=== PATIENT | male | born 1940 | race Caucasian/White ===

== ENCOUNTER 2024-12-25 03:51 | Inpatient (IN) | payer MEDICARE, OTHER, SELFPAY ==
[2024-12-24 21:05] VITALS: BP 191/91
[2024-12-24 21:31] LABS: Hematocrit 45.8 % (39.0-52.0); Hemoglobin 15.7 g/dL (13.0-18.0); Mean Corp Hgb Conc. 34.3 g/dL (33.0-37.0); Mean Corpuscular Volume 92.2 fL (80.0-94.0); Nucleated Red Blood Cells % 0 % (-); Platelet Count 219 10^3/uL (130-400); Red Cell Dist. Width 14.0 % (11.5-14.5)
[2024-12-24 21:44] LABS: ALT (SGPT) 24 U/L (0-50); AST (SGOT) 25 U/L (17-59); Albumin 4.2 g/dl (3.5-5.0); Alkaline Phosphatase 70 U/L (38-126); Blood Urea Nitrogen 17 mg/dl (9-20); Calcium 9.4 mg/dl (8.4-10.2); Carbon Dioxide 23 mmol/L (22-30); Chloride 113 mmol/L (98-107); Glucose 122 mg/dl (70-99); Potassium 4.9 mmol/L (3.5-5.1); Sodium 142 mmol/L (135-145); Total Protein 7.1 g/dl (6.3-8.2); eGFR 48.95
[2024-12-24 23:54] VITALS: BP 174/85
[2024-12-25] VITALS (16 sets, daily range): BP systolic 145–184; BP diastolic 72–103; PULSE 50–57; O2SAT 97; BMI 34.2; BMI 35.4
--- NOTE | 2024-12-25 00:16 | ED.GENMED ---
ED Provider Triage
<Bal Kulkarni MD, Resident - Last Filed: 12/25/24 02:14>
-
Patient seen by provider in Triage?: Seen in Triage
History of Present Illness
<Bal Kulkarni MD, Resident - Last Filed: 12/25/24 02:14>
General
Chief Complaint: Weakness
Source: patient
Exam Limitations: none
Time Seen by Provider: 12/24/24 23:59
History of Present Illness
History of Present Illness:
84-year-old male with present at bedside presents today because at around 8:00 PM he was getting up from his couch and all of a sudden felt weakness of his right leg and was unable to move the leg for a few minutes. Not associated with any
numbness or tingling. No slurring of speech, facial droop, visual changes, confusion. No recent falls, head trauma. No previous PA or stroke. Medical history is significant for hypothyroidism and benign prostatic hyperplasia.
Past History
<Bal Kulkarni MD, Resident - Last Filed: 12/25/24 02:14>
Past History
ED Past Medical History: HTN, Other (Kidney stones) and Other (Hypothyroidism, neck pain)
ED Past Surgical History: None
Social History
Tobacco: Non-smoker
Alcohol: None
Personal:
Living: with family
Employment: Retired
Family History
Family History: Negative CAD
Review of Systems
<Bal Kulkarni MD, Resident - Last Filed: 12/25/24 02:14>
Review of Systems
Allergies reviewed?: Yes
All Other Systems: ROS reviewed and negative except as documented in HPI and ROS
Respiratory: Reports no symptoms
Cardiac: Reports no symptoms
ABD/GI: Reports no symptoms
Musculoskeletal: Reports no symptoms
Psychiatric: Reports no symptoms
Phy Exam
<Bal Kulkarni MD, Resident - Last Filed: 12/25/24 02:14>
General Physical Exam
General Presentation: well appearing and no apparent distress
General Skin: warm and dry
General Habitus: normal
General Mental: alert
Cardiovascular Exam
Cardiovascular Exam: regular rate/rhythm and no edema
Pulmonary Exam
Pulmonary Exam: lungs clear and no respiratory distress
Gastrointestinal Exam
Gastrointestinal Exam: normal bowel sounds, non tender, soft and non distended
Neurological Exam
Neurological Exam: alert, oriented x3, CN II-XII intact, no motor deficits, normal reflexs, no sensory deficits and speech normal
Musculoskeletal Exam
Musculoskeletal Exam: full ROM
Scores
<Bal Kulkarni MD, Resident - Last Filed: 12/25/24 02:14>
NIH Stroke Score
NIH Total Score:: 3
<Khloe Soto, DO - Last Filed: 12/25/24 02:35>
NIH Stroke Score
Level of Consciousness: 0 - Alert
LOC Questions: 2-Neither correct
LOC Commands: 0-Performs both correctly
Best Horizontal Gaze: 0-Normal
Visual Lopez: 0=Normal, no visual loss
Facial Palsy: 0=Normal, symmetrical
Motor - Right Arm: 0=No drift 10 seconds
Motor - Left Arm: 0=No drift 10 seconds
Motor - Right Le-No drift 5 seconds
Motor - Left Le-No drift 5 seconds
Limb Ataxia: 0-Absent
Sensation: 0-Normal
Best Language: 1-Mild aphasia
Dysarthria: 0-Normal
Extinction and Inattention: 0-No abnormality
NIH Total Score:: 3
Course
<Bal Kulkarni MD, Resident - Last Filed: 12/25/24 02:14>
Orders/Labs/Results
Orders:
Orders
12/24/24 21:10
EKG [Electrocardiogram (*1)] Urgent
Reason for Study: Fatigue / Weakness
EKG- Treatment ONCE
12/24/24 21:23
Complete Blood Count/With Diff Urgent
Comprehensive Metabolic Panel Urgent
12/25/24 01:08
CT BRAIN PERF STROKE ALERT Urgent
Comment:
Reason For Exam: R-leg weakness, confusion
CT HEAD STROKE ALERT W/o Cont Urgent
Comment:
Reason For Exam: R-leg weakness, confusion
CT HEAD/NECK ANG STROKE ALERT Urgent
Comment:
Reason For Exam: R-leg weakness, confusion
PTT Urgent
Prothrombin Time Urgent
Troponin I Urgent
12/25/24 01:09
Electrocardiogram (*1) Stat
Reason for Study: Other
Other Reason for Exam: neuro symptoms
12/25/24 01:10
Urinalysis Reflex To Culture Urgent
Date Specimen was Collected: 12/25/24
Time Specimen was Collected: 02:06
Abnormal Lab Results
12/24/24
21:23
MCH 31.6 H pg
(27.0-31.0)
MPV 10.7 H fL
(7.4-10.4)
Absolute Monos (auto) 0.7 H 10^3/uL
(0.1-0.6)
Chloride 113 H mmol/L
(98-107)
Creatinine 1.4 H mg/dL
(0.7-1.3)
Glucose 122 H mg/dl
(70-99)
12/24/24 21:23
12/24/24 21:23
Vital Signs
Initial and Last Documented VS:
Initial Vital Signs
Temp Pulse Resp BP Pulse Ox
98.3 F 56 16 191/91 97
12/24/24 21:05 12/24/24 21:05 12/24/24 21:05 12/24/24 21:05 12/24/24 21:05
Last Documented Vital Signs
Temp Pulse Resp BP Pulse Ox
98.3 F 48 22 166/72 96
12/24/24 21:05 12/25/24 01:01 12/25/24 01:01 12/25/24 01:42 12/25/24 00:19
<Khloe Soto, DO - Last Filed: 12/25/24 02:35>
Orders/Labs/Results
Orders:
Orders
12/24/24 21:10
EKG [Electrocardiogram (*1)] Urgent
Reason for Study: Fatigue / Weakness
EKG- Treatment ONCE
12/24/24 21:23
Complete Blood Count/With Diff Urgent
Comprehensive Metabolic Panel Urgent
12/25/24 01:08
CT BRAIN PERF STROKE ALERT Urgent
Comment:
Reason For Exam: R-leg weakness, confusion
CT HEAD STROKE ALERT W/o Cont Urgent
Comment:
Reason For Exam: R-leg weakness, confusion
CT HEAD/NECK ANG STROKE ALERT Urgent
Comment:
Reason For Exam: R-leg weakness, confusion
PTT Urgent
Prothrombin Time Urgent
Troponin I Urgent
12/25/24 01:09
Electrocardiogram (*1) Stat
Reason for Study: Other
Other Reason for Exam: neuro symptoms
12/25/24 01:10
Urinalysis Reflex To Culture Urgent
Date Specimen was Collected: 12/25/24
Time Specimen was Collected: 02:06
Abnormal Lab Results
12/24/24
21:23
MCH 31.6 H pg
(27.0-31.0)
MPV 10.7 H fL
(7.4-10.4)
Absolute Monos (auto) 0.7 H 10^3/uL
(0.1-0.6)
Chloride 113 H mmol/L
(98-107)
Creatinine 1.4 H mg/dL
(0.7-1.3)
Glucose 122 H mg/dl
(70-99)
12/24/24 21:23
12/24/24 21:23
Vital Signs
Initial and Last Documented VS:
Initial Vital Signs
Temp Pulse Resp BP Pulse Ox
98.3 F 56 16 191/91 97
12/24/24 21:05 12/24/24 21:05 12/24/24 21:05 12/24/24 21:05 12/24/24 21:05
Last Documented Vital Signs
Temp Pulse Resp BP Pulse Ox
98.3 F 48 22 166/72 96
12/24/24 21:05 12/25/24 01:01 12/25/24 01:01 12/25/24 01:42 12/25/24 00:19
<Bal Kulkarni MD, Resident - Last Filed: 12/25/24 02:14>
MDM/Problems Addressed
MDM/Problems Addressed:
- CBC is unremarkable
- CMP shows a cr of 1.4
- UA pending
- Stroke alert called. Will get CT brain and angio.
<Bal Kulkarni MD, Resident - Last Filed: 12/25/24 02:14>
*Pulse Oximetry
SaO2: 96
Oxygen Mode of Delivery: Room air
Patient hypoxic: no
*Critical Care Note
Total Time (30-74mins, 75-104mins- exclusive of procedures): Not Applicable
<Khloe Soto, DO - Last Filed: 12/25/24 02:35>
*EKG
Interpreted by ED Provider?: Yes
EKG Intrepretation Date: 12/25/24
EKG Intrepretation Time: 01:57
Interpretation: abnormal
Comparison EKG: no changes (03/11/21)
Heart Rate: 47
Rate: bradycardiac
Rhythm: sinus
[place]: left axis deviation
Interval: normal interval
QRS Pattern: right bundle branch block
Ischemia: no ischemia
ED Attending Note
<Bal Kulkarni MD, Resident - Last Filed: 12/25/24 02:14>
-
Portions of this chart may have been created with voice recognition software.� Occasional wrong word or��sound alike� substitutions may have occurred due to the inherent limitations of voice recognition software.
<Khloe Soto DO - Last Filed: 12/25/24 02:35>
ED Attending Note
Patient seen and examined by attending physician: Yes
I performed the substantive portion of visit, reviewed & personally made and approve the management plan that is documented in note by myself or MYRTLE.: Yes
I performed a history and physical exam of patient and discussed management with resident, I reviewed resident's note and agree with documented findings and plan of care.: Yes
ED Attending Note:
84-year-old male with history of BPH and hypothyroidism presenting to the emergency department for right leg weakness. Patient arrives with who notes that 8 PM patient was trying to get up from the couch and had weakness to his right leg. He
was unable to get up. He noted that the symptoms lasted about 30 minutes, and then improved. Denies any history of stroke. Denies any numbness or tingling to his leg. Denies ever having this issue in the past. Denies fall or trauma.
Patient arrived to the hospital, was allegedly ambulatory in triage, sent to the waiting room until bed available with lower suspicion for acute stroke. Once patient brought back to examination room, neurologic examination completed. Patient with
intact strength and sensation to the right lower extremity without obvious drift. However when trying to get patient up to ambulate, unable to do so. Patient also appears acutely confused. He is a limited historian, is oriented to place only
which at bedside notes is abnormal for him. He is able to answer questions, however prolonged time for processing questions. At time of my assessment, concern for possible CVA versus TIA given overall improvement of his weakness, reported
weakness at home. However, currently out of the window for TNK. Patient made a stroke alert given that he is still within the window for possible targeted thrombolytic therapy. Will obtain CT brain, CT angio, CT perfusion. Also evaluate for
possible metabolic component to symptoms laboratory analysis, urinalysis. EKG shows sinus bradycardia, which does not appear changed from prior EKG.
02:30 -CT brain without contrast negative. CT angio of the head and neck without any occlusions, however on CT brain perfusion, prolonged Tmax in the medial left frontal lobe suggestive of a left GERONIMO infarct. On reassessment, patient is now able
to tell me his birthdate, maintaining function of right lower extremity. Will administer aspirin and Plavix and plan for admission for continued stroke workup
Discharge Plan
Departure
Prescriptions:
No Action
levothyroxine 50 MCG tablet
50 mcg PO DAILY
finasteride 5 MG tablet
5 mg PO DAILY
Referrals:
Miki Wilson MD [Family Provider, Internal Medicine]
Interventions
Interventions:
*Risk Screen - Suicide Last Done: 12/24/24 21:05
*General Assessment Last Done: 12/24/24 21:05
*Neglect/Abuse Screening Last Done: 12/24/24 21:05
*ED- Fall Risk Assessment Last Done: 12/25/24 00:31
ED- Cardiac Assessment Last Done: 12/25/24 00:42
ED- Neurological Assessment Last Done: 12/25/24 01:42
ED- Pulmonary Assessment Last Done: 12/25/24 00:42
Discharge Date and Time
Print Language: DIVEHI
--- NOTE | 2024-12-25 00:33 | EDRN ---
Pt's says he did not have strength in his R leg to get up around 1999. tried to help pt up but was unable to do so. called their daughter who came over but pt was able to get up at this point on his own. Pt went to the bathroom,
went to the car and pt's drove him here for evaluation. Pt says 'I don't feel too bad' now. No pain, numbness/tingling, headache, dizziness, cp, sob, visual/speech disturbance. adds when triage nurse helped pt out of wheelchair to get
onto stretcher pt had a hard time moving. Pt notes weakness in R leg only. No hx similar complaint - no heavy lifting, exercising, change in routine, injury.
--- NOTE | 2024-12-25 01:08 | EDRN ---
Stroke alert called per Dr Soto
[2024-12-25 01:38] LABS: INR 0.98; PT 13.3 Sec (11.4-14.6)
[2024-12-25 01:39] LABS: APTT 31.2 Sec (23.4-35.0)
[2024-12-25 02:00] LABS: Troponin I < 0.012 ng/ml
[2024-12-25 02:43] LABS: Urine Character Clear (Clear)
[2024-12-25 02:53] LABS: Urine Red Blood Cell None Seen /HPF (0-2); Urine White Cell 0-2 /HPF (0-5)
[2024-12-25] MEDS: LOW STRENGTH ASPIRIN 81 MG PO ×2 (03:04→08:31)
[2024-12-25] MEDS: PLAVIX 300 MG PO (03:05)
--- NOTE | 2024-12-25 03:46 | HPS.HSE ---
Family Physician
-
Family Physician: Duane Wilson
Chief Complaint
-
RLE Weakness
History of Present Illness
Patient is an 84y R-hand dominant M with PMH significant for hypertension, CKD and hypothyroidism who presents to ED complaining of difficulty getting out of his chair at home. History obtained from patient and his at the beside. Patient
was feeling well until about 8 PM this evening when he attempted to stand from his recliner and noted that his RLE was not cooperating. He was unable to get out of the chair and was brought to the ED for further evaluation. Patient was apparently
ambulatory upon initial arrival here. He was evaluated by ED staff and noted to have some R weakness as well as confusion - which notes started only after his arrival here. Stroke alert was activated. Patient was beyond 4.5 hours from
initial symptom onset at this point and deemed not a candidate for TNK.
CT, CTA and CT perfusion studies were obtained and patient was then referred for admission.
At the time of my examination, patient is able to answer questions but seems somewhat confused / disoriented. He has R sided weakness.
No personal history of [place], CVA.
Medical History
Past Medical History
Past Medical History: Reports Other
Additional Past Medical History:
Hypertension
CKD III
Hypothyroidism
RBBB
BPH
Past Surgical History: Reports Other
Additional Past Surgical History:
Skin Cancer Excison
Social History
Tobacco: Non-smoker
Alcohol: None
Drug: None
Personal:
Living: With Family
Family History
Family History: Not pertinent
Allergies / Home Medications
Allergies reflects when Allergies were last updated in [employer].
Home Medications with original date entered in [employer]
Allergy/Medication List:
Allergies
Allergy/AdvReac Type Severity Reaction Status Date / Time
No Known Allergies Allergy Verified 12/25/24 00:31
Home Medications
levothyroxine 50 mcg tablet 50 mcg PO DAILY Thyroid 06/10/14
finasteride 5 mg tablet 5 mg PO DAILY Urinary issue 02/23/21
Review of Systems
-
History Source: Patient and Family
A 12 point ROS was completed and negative except as noted: Yes
Constitutional: Denies Fever or Chills
Respiratory: Denies Cough or Trouble Breathing
Cardiac: Denies Chest Pain or Palpitations
Abdomen/GI: Denies Abdominal Pain, Nausea, Vomiting or Diarrhea
Musculoskeletal: Denies Joint Pain or Edema
Neurological: Reports Weakness; Denies Dizzy or Headache
Psych: Denies Depression
Physical Exam
Vital Signs
Vital Signs
Temp Pulse Resp BP Pulse Ox
98.3 F 50 27 180/82 96
12/24/24 21:05 12/25/24 02:00 12/25/24 02:00 12/25/24 02:00 12/25/24 00:19
Physical Exam
General: Other (84y M with somewhat of a flat affect. Awake and alert. Not in distress.)
HEENT: Moist mucous membranes and PERRLA
Respiratory: Clear; No Wheezes, Rales or Rhonchi
Cardiac: S1/S2 and Bradycardia; No Murmur
GI: Soft, Non Tender, Non Distended and Normal Bowel Sounds
Musculoskeletal: No Clubbing, No Cyanosis and No Edema
Neuro: Awake, Alert and Other (R sided weakness on exam - LE > UE. Sensation seems intact. Speech is clear.)
Laboratory Results
-
12/24/24 21:23
12/24/24 21:23
Laboratory Results
PT 13.3 Sec (11.4-14.6) 12/25/24 01:08
INR 0.98 12/25/24 01:08
APTT 31.2 Sec (23.4-35.0) 12/25/24 01:08
Total Bilirubin 0.7 mg/dl (0.2-1.3) 12/24/24 21:23
AST 25 U/L (17-59) 12/24/24 21:23
ALT 24 U/L (0-50) 12/24/24 21:23
Alkaline Phosphatase 70 U/L (38-126) 12/24/24 21:23
Troponin I < 0.012 ng/ml 12/25/24 01:08
Impression/Plan
-
A/P: Patient is an 84y M with PMH significant for hypertension, hypothyroidism and CKD III who presents to ED complaining of RLE weakness / difficulty standing.
Left GERONIMO CVA
- Admit for further evaluation and treatment.
- Onset of symptoms around 8PM this evening. Persistent R sided weakness and some confusion.
- CT unremarkable.
- CTA shows stenosis of R vertebral and L GERONIMO.
- CT perfusion shows area of impaired perfusion in L GERONIMO distribution / L frontal lobe.
- DAPT.
- Follow neurologic exam for changes.
- MRI in AM.
- Check lipids, A1C, etc.
- Neurology evaluation for additional recommendations.
- PT / OT / Speech evaluations.
- Follow for any new / worsening symptoms.
- Follow BP and allow degree of permissive hypertension for initial 24 hours - add medications thereafter if needed for adequate BP control.
Benign Hypertension
- Not currently on any antihypertensive medications despite listed diagnosis.
CKD III
- Stable. Renal function is at / near known baseline.
BPH
- Stable. Continue finasteride.
- Bladder scan protocol.
Hypothyroidism
- Continue current T4 replacement.
- Update TFTs.
DVT Prophylaxis: SCDs
Code Status: DNR
--- NOTE | 2024-12-25 05:49 | EDRN ---
Verbal report on stroke scale and swallowing screen given to [place]
--- NOTE | 2024-12-25 07:04 | PTCARENOTE ---
Patient received on unit as admission from emergency department. Difficulty noted during transfer requiring staff intervention to avoid fall. Patient is disoriented to time and situation currently. Difficulty is experienced during verbal admission
assessment and patient becomes silent rather than answer. Unclear if patient is word finding or unsure of response. Vital signs and skin assessment completed per protocol.
[2024-12-25 07:27] LABS: Hematocrit 45.0 % (39.0-52.0); Hemoglobin 15.3 g/dL (13.0-18.0); Mean Corp Hgb Conc. 34.0 g/dL (33.0-37.0); Mean Corpuscular Volume 90.9 fL (80.0-94.0); Platelet Count 199 10^3/uL (130-400); Red Cell Dist. Width 14.0 % (11.5-14.5)
--- NOTE | 2024-12-25 07:41 | W.PN.HOSP.TC ---
Today's Communication/Plan
-
MRI today
Assessment / Plan
Assessment / Plan
Impression:
Patient is an 84y M with PMH significant for hypertension, hypothyroidism and CKD III who presents to ED complaining of RLE weakness / difficulty standing.
Admitted to the hospital service for acute CVA workup.
MRI brain ordered
Assessment/plan:
Left GERONIMO CVA
- Admit for further evaluation and treatment.
- Onset of symptoms around 8PM this evening. Persistent R sided weakness and some confusion.
- CT unremarkable.
- CTA shows stenosis of R vertebral and L GERONIMO.
- CT perfusion shows area of impaired perfusion in L GERONIMO distribution / L frontal lobe.
- DAPT.
- Follow neurologic exam for changes.
- MRI pending
- Total cholesterol level 188, LDL 126, globin A1c
- Neurology evaluation hypertension
- PT / OT / Speech evaluations.
- Follow for any new / worsening symptoms.
- Follow BP and allow degree of permissive hypertension for initial 24 hours - add medications thereafter if needed for adequate BP control.
Benign Hypertension
- Not currently on any antihypertensive medications despite listed diagnosis.
allow permissive hypertension
CKD III
- Stable. Renal function is at / near known baseline.
BPH
- Stable. Continue finasteride.
- Bladder scan protocol.
Hypothyroidism
- Continue current T4 replacement.
- TSH 3.68
CODE STATUS: DNR
DVT prophylaxis: SCDs
Diet: Regular diet
Family communication: Discussed with at bedside
Disposition: MRI pending
Total time spent on today's encounter was 52 minutes which included time spent in counseling the patient/family regarding diagnosis and treatment plan as listed above, goals of care, and symptom management. Case was discussed with nursing staff,
specialists, and care coordinators/case management. All labs and imaging personally reviewed by me. Remainder the time spent in detailed review of previous records, lab data, imaging, and other medical provider documentation.
Anticipated Discharge: 24 - 48 hours
Subjective/Interval History
-
Date of Service: December 25, 2024
Patient seen and examined at bedside, sitting in the chair, at bedside.
Denies any chest pain or shortness of breath, no abdominal pain, no nausea, no vomiting, no diarrhea or constipation.
Objective Data
-
Labs:
Laboratory Results
12/24/24 12/25/24 12/25/24
21:23 01:08 07:08
WBC 8.0 7.7
Hgb 15.7 15.3
Hct 45.8 45.0
Plt Count 219 199
PT 13.3
INR 0.98
APTT 31.2
Sodium 142 Pending
Potassium 4.9 Pending
Chloride 113 H Pending
Carbon Dioxide 23 Pending
BUN 17 Pending
Creatinine 1.4 H Pending
Glucose 122 H Pending
Calcium 9.4 Pending
Total Bilirubin 0.7
AST 25
ALT 24
Alkaline Phosphatase 70
Vital Signs:
Vital Signs
Temp Pulse Resp BP Pulse Ox
98.2 F 52 18 163/86 98
12/25/24 06:21 12/25/24 06:21 12/25/24 06:21 12/25/24 06:21 12/25/24 06:21
I&O
12/24/24 12/25/24 12/26/24
06:59 06:59 06:59
Intake Total 180 / 180
Output Total 400 / 400
Balance -220 / -220
Physical Exam
-
General: Well Developed, Well Nourished, No Apparent Distress and Comfortable
HEENT: Normocephalic, Atraumatic, Moist Mucous Membranes, No Ptosis, PERRLA and Nose Appears Normal
Respiratory: Clear to Auscultation and Non Labored Respirations
Cardiac: Regular Rhythm and S1/S2
Breast: Deferred by me
GI: Soft, Nontender, Nondistended and Normal Bowel Sounds
Genito-urinary: No Costovertebral Tender
Musculoskeletal: No Clubbing, No Cyanosis and No Edema
Skin: Warm
Neuro: Awake, Alert, Oriented, AO x 3 and No Motor Deficits
Psych: Calm
Data Reviewed
-
Diagnostic Radiology: Image personally visualized and interpreted and Report Reviewed by me
CT Scan: Image personally visualized and interpreted and Report Reviewed by me
Ultrasound: Image personally visualized and interpreted and Report Reviewed by me
MRI: Image personally visualized and interpreted and Report Reviewed by me
Medical Tests (Nuc Med, Echo etc): Image personally visualized and interpreted and Report Reviewed by me
Labs: Labs Reviewed by me
Old Records: Reviewed
[2024-12-25 08:03] LABS: Blood Urea Nitrogen 16 mg/dl (9-20); Calcium 8.9 mg/dl (8.4-10.2); Carbon Dioxide 23 mmol/L (22-30); Chloride 111 mmol/L (98-107); Estimated Creatinine Clearance 43 ml/min; Glucose 116 mg/dl (70-99); HDL Cholesterol 40 mg/dl; LDL Cholesterol, Calculated 126 mg/dl; Potassium 4.5 mmol/L (3.5-5.1); Sodium 142 mmol/L (135-145); Very Low Density Lipoprotein 22 mg/dl (0-30); eGFR 48.95
[2024-12-25] MEDS: PROSCAR 5 MG PO (08:31)
[2024-12-25] MEDS: PLAVIX 75 MG PO (08:31)
--- NOTE | 2024-12-25 08:59 | CON.NEURO4 ---
Consultation - Neurology 4
-
CONSULTING PHYSICIAN: Loyd Richard MD
REFERRING PHYSICIAN: Evin Mcgee MD
DICTATED BY: Loyd Richard MD
DATE/TIME OF REQUEST: 12/25/2024
DATE/TIME OF CONSULTATION: 12/25/2024
Reason for Consultation: RLE weakness
Assessment and Plan:
The patient is an 84 years old male with a past medical history of hypertension CKD and hypothyroidism who presented to the ED complaining of difficulty in getting out of his chair at home.
. CT of the head did not show an acute intracranial abnormality.
. CTA of the head and neck was done that showed a severe focal narrowing of the mid left anterior cerebral artery.
. CT brain perfusion showed that there was hypoperfusion in the left anterior cerebral artery territory. According to the ER note, the patient was not a candidate for TNK as he was outside the time window.
. MRI of the brain:
There is a 1.0 x 0.5 cm acute ischemic infarct in the medial cortical flanagan matter of the left frontal lobe adjacent to the interhemispheric falx and anterior to the left lateral ventricle containing restricted diffusion and a minimal amount of low
T1 and high T2/FLAIR signal intensity vasogenic edema. There is a band of restricted diffusion in the anterior left frontal lobe barbour radiata measuring 2.0 x 0.5 cm in size consistent with acute infarction.
The patient appears to have had an acute cerebrovascular accident secondary to severe focal narrowing of the mid left anterior cerebral artery. NIHSS=4.
Stroke pathway.
Aspirin 81 mg daily, Plavix 75 mg daily and atorvastatin 40 mg daily.
History of Present Illness:
The patient is an 84 years old male with a past medical history of hypertension CKD and hypothyroidism who presented to the ED complaining of difficulty in getting out of his chair at home. History was obtained from the patient and his . The
patient's last known normal was at around 8 PM yesterday when he attempted to stand from his recliner and noted that his right lower extremity was weak. The patient the patient was reported to be ambulatory upon initial arrival to the ED and was
noted to have some right-sided weakness as well as confusion, which the notes started only after his arrival here. CT of the head did not show an acute intracranial abnormality. CTA of the head and neck was done that showed a severe focal
narrowing of the mid left anterior cerebral artery. CT brain perfusion showed that there was hypoperfusion in the left anterior cerebral artery territory. According to the ER note, the patient was not a candidate for TNK as he was outside the time
window.
Past Medical History:
Hypertension CKD and hypothyroidism
Review of Symptoms:
The patient denies headache, dizziness, chest pain, shortness of breath, fever, chills, nausea and vomiting.
Neurologic Examination:
The patient is awake, alert and oriented x 3. He cannot tell his age or the month. He is able to follow commands and answer questions appropriately.
The patient does not have aphasia or dysarthria however he is slow to respond to questions, but when he speaks he speaks clearly.
The cranial nerves II to XII are grossly intact
The motor strength is grossly 4/5 in the right upper and lower extremities. The strength is grossly 5/5 in the left upper and lower extremities.
The sensations are intact bilaterally.
The [id number] and rhbb-tr-[id number] tests do not show limb ataxia.
Total Time Spent with Patient (in minutes): 40
Medications
-
Active Medications
Generic Name Dose Route Start Last Admin
Trade Name Freq PRN Reason Stop Dose Admin
Acetaminophen 650 mg 12/25/24 05:59
Acetaminophen 325 Mg Tablet PO 01/22/25 05:58
Q4HPRN PRN
Mild Pain / Temp > 101
Aspirin 81 mg 12/25/24 08:00 12/25/24 08:31
Aspirin 81 Mg Chewable Tablet PO 01/22/25 07:59 81 mg
DAILY MARKEL Administration
Clopidogrel Bisulfate 75 mg 12/25/24 08:00 12/25/24 08:31
Clopidogrel 75 Mg Tablet PO 01/22/25 07:59 75 mg
DAILY MARKEL Administration
Finasteride 5 mg 12/25/24 08:00 12/25/24 08:31
Finasteride 5 Mg Tablet PO 01/22/25 07:59 5 mg
DAILY MARKEL Administration
Levothyroxine Sodium 50 mcg 12/26/24 06:00
Levothyroxine 50 Mcg Tablet PO 01/23/25 05:59
DAILY @ 0600 MARKEL
Sodium Chloride 0 flush 12/25/24 07:00
Sodium Chloride 0.9% (Flush) Syringe IV 01/22/25 06:59
PER PROTOCOL MARKEL
Home Medications
�Medication �Instructions �Recorded
levothyroxine 50 mcg tablet 50 mcg PO DAILY Thyroid 06/10/14
finasteride 5 mg tablet 5 mg PO DAILY Urinary issue 02/23/21
Vital Signs and Labs
-
Vital Signs and Labs:
Vital Signs
Temp Pulse Resp BP Pulse Ox
36.6 C 51 16 152/83 96
12/25/24 16:30 12/25/24 16:30 12/25/24 16:30 12/25/24 16:30 12/25/24 16:30
Lab Results
12/25/24 07:08
12/25/24 07:08
PT 13.3 Sec (11.4-14.6) 12/25/24 01:08
INR 0.98 12/25/24 01:08
APTT 31.2 Sec (23.4-35.0) 12/25/24 01:08
Sodium 142 mmol/L (135-145) 12/25/24 07:08
Potassium 4.5 mmol/L (3.5-5.1) 12/25/24 07:08
BUN 16 mg/dl (9-20) 12/25/24 07:08
Glucose 116 mg/dl (70-99) H 12/25/24 07:08
Calcium 8.9 mg/dl (8.4-10.2) 12/25/24 07:08
LDL Cholesterol, Calc 126 mg/dl 12/25/24 07:08
--- NOTE | 2024-12-25 09:33 | CM ---
CM met with pt at bedside.
Pt resides in a 2SH with spouse. Uses a RW for ambulation. Ind with adl's. + [employer].
Confirmed PCP is Duane Wilson and pharmacy is [facility].
Pt does not know whether he carries a prescription plan.
HC history years ago and no SNF history.
Therapy evals pending. Anticipate home with VN vs SNF at ut.
[2024-12-25 12:35] LABS: Glycohemoglobin (HgbA1c) 5.9 % (4.0-5.6)
--- NOTE | 2024-12-25 15:49 | PTCARENOTE ---
At aprox 1355 Pt was in chair in room with . Pt was able to get up to bedside commode earlier for me with a stand/ pivot using a rolling walker with no issue. I attempted to turn pivot patient from chair using rolling walker to wheelchair for
his scheduled MRI when his leg buckled. I lowered him to the floor. 4 staff members assisted him up using carlo lift and we placed onto stretcher. I took patient down to MRI. Pt with no injury, denies any pain.
--- NOTE | 2024-12-25 17:40 | PTOTSP ---
ST Acute Care Evaluation
Pt currently presents with clinical signs of mild oropharyngeal dysphagia characterized by reduced bolus formation, reduced oral awareness, and diffuse oral residue as well as intermittent wet vocal quality and throat clearing that is suspicious for
penetration/aspiration events. Additionally, pt exhibits clinical signs of suspected esophageal dysfunction characterized by fairly persistent belching with immediate subsequent coughing that is suspicious for airway invasion from retrograde flow.
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 Pt's relative strengths are in the areas of occasional use of head to gesture yes/no, some
intact automatic speech, single word comprehension, single word repetition, simple confrontational naming, very simple one-word reading, and very simple 1-step directions that do not require oral/limb movements. Pt would benefit from intensive SPD TECH
services upon discharge.
Recommendations:
- Soft bite sized solids and thin liquids; meds whole in puree.
- Aspiration precautions: HOB upright for all PO intake; close supervision with PO intake; alternate solids/liquids.
- Reflux precautions: HOB upright for at least an hour after PO intake; chew food thoroughly; eat slowly; HOB raised 30 degrees when sleeping.
- SPD TECH to f/u re: diet tolerance and use of compensatory strategies as well as to determine if pt would benefit from an instrumental swallow study.
- SPD TECH to f/u re: speech, language, and cognitive tx.
- Pt would benefit from continued SPD TECH tx services upon discharge at the ACUTE REHAB level of care.
[2024-12-26 03:04] VITALS: BP 174/89
[2024-12-26 05:12] VITALS: BMI 35.1
--- NOTE | 2024-12-26 05:26 | PTCARENOTE ---
pt Heart has been in the 30-40's all night. pt is SB, pvc, and pauses.
[2024-12-26] MEDS: SYNTHROID 50 MCG PO (05:49)
[2024-12-26 06:32] LABS: Hematocrit 44.2 % (39.0-52.0); Hemoglobin 15.0 g/dL (13.0-18.0); Mean Corp Hgb Conc. 33.9 g/dL (33.0-37.0); Mean Corpuscular Volume 93.1 fL (80.0-94.0); Platelet Count 173 10^3/uL (130-400); Red Cell Dist. Width 13.9 % (11.5-14.5)
[2024-12-26 07:03] LABS: Blood Urea Nitrogen 14 mg/dl (9-20); Calcium 8.6 mg/dl (8.4-10.2); Carbon Dioxide 23 mmol/L (22-30); Chloride 113 mmol/L (98-107); Estimated Creatinine Clearance 50 ml/min; Glucose 95 mg/dl (70-99); Magnesium 2.1 mg/dl (1.6-2.3); Potassium 4.1 mmol/L (3.5-5.1); Sodium 142 mmol/L (135-145); eGFR 58.89
[2024-12-26 07:47] VITALS: BP 167/82
[2024-12-26] MEDS: PLAVIX 75 MG PO (08:05)
[2024-12-26] MEDS: LOW STRENGTH ASPIRIN 81 MG PO (08:05)
[2024-12-26] MEDS: PROSCAR 5 MG PO (08:05)
--- NOTE | 2024-12-26 08:42 | W.PN.NEURO.1 ---
Today's Communication / Plan
-
Started atorvastatin 40 mg daily due to LDL greater than 70
After 21 days, replace both aspirin and clopidogrel with aspirin 325 mg daily due to intracranial stenosis, despite the small area of intraparenchymal hemorrhage included in the chronic right parietal lobe stroke
Neuro Assessment/Plan
Assessment
Patient presented with acute onset right lower extremity weakness and change in mental status at the time of arrival. Subsequent MRI imaging of the brain demonstrated a chronic right parietal ischemic/hemorrhagic stroke with an acute ischemic
stroke in the right frontal lobe.
Plan
Started atorvastatin 40 mg daily due to LDL greater than 70
Goal of normotension
Rehabilitation evaluation and treatment
After 21 days, replace both aspirin and clopidogrel with aspirin 325 mg daily due to intracranial stenosis, despite the small area of intraparenchymal hemorrhage included in the chronic right parietal lobe stroke
Goal of normoglycemia
Will follow as needed
Subjective/Objective
Subjective Data
Date of Service: December 26, 2024
Objective Data
Vital Signs
Temp Pulse Resp BP Pulse Ox
36.6 C 46 16 167/82 97
12/26/24 07:52 12/26/24 07:47 12/26/24 07:47 12/26/24 07:47 12/26/24 07:47
Lab Results
12/26/24 05:47
12/26/24 05:47
PT 13.3 Sec (11.4-14.6) 12/25/24 01:08
INR 0.98 12/25/24 01:08
APTT 31.2 Sec (23.4-35.0) 12/25/24 01:08
Sodium 142 mmol/L (135-145) 12/26/24 05:47
Potassium 4.1 mmol/L (3.5-5.1) 12/26/24 05:47
BUN 14 mg/dl (9-20) 12/26/24 05:47
Glucose 95 mg/dl (70-99) 12/26/24 05:47
Calcium 8.6 mg/dl (8.4-10.2) 12/26/24 05:47
LDL Cholesterol, Calc 126 mg/dl 12/25/24 07:08
Patient Allergies
No Known Allergies Allergy (Verified 12/25/24 00:31)
Past History
Past History
ED Past Medical History: CVA (Left frontal ischemic stroke December 2024), HTN, Other (Kidney stones) and Other (Hypothyroidism, neck pain)
ED Past Surgical History: None
Social History
Tobacco: Non-smoker
Alcohol: None
Personal:
Living: with family
Employment: Retired
Family History
Family History: Negative CAD
Medications
-
Medications:
Generic Name Dose Route Start Last Admin
Trade Name Freq PRN Reason Stop Dose Admin
Acetaminophen 650 mg 12/25/24 05:59
Acetaminophen 325 Mg Tablet PO 01/22/25 05:58
Q4HPRN PRN
Mild Pain / Temp > 101
Aspirin 81 mg 12/25/24 08:00 12/26/24 08:05
Aspirin 81 Mg Chewable Tablet PO 01/22/25 07:59 81 mg
DAILY MARKEL Administration
Atorvastatin Calcium 40 mg 12/26/24 18:00
Atorvastatin (Lipitor) 40 Mg Tablet PO 01/23/25 17:59
QPM MARKEL
Clopidogrel Bisulfate 75 mg 12/25/24 08:00 12/26/24 08:05
Clopidogrel 75 Mg Tablet PO 01/22/25 07:59 75 mg
DAILY MARKEL Administration
Finasteride 5 mg 12/25/24 08:00 12/26/24 08:05
Finasteride 5 Mg Tablet PO 01/22/25 07:59 5 mg
DAILY MARKEL Administration
Levothyroxine Sodium 50 mcg 12/26/24 06:00 12/26/24 05:49
Levothyroxine 50 Mcg Tablet PO 01/23/25 05:59 50 mcg
DAILY @ 0600 MARKEL Administration
Sodium Chloride 0 flush 12/25/24 07:00
Sodium Chloride 0.9% (Flush) Syringe IV 01/22/25 06:59
PER PROTOCOL MARKEL
--- NOTE | 2024-12-26 10:26 | W.PN.HOSP.TC ---
Addendum entered and electronically signed by Derek Elizalde MD 12/26/24 12:27:
ESME on CKD 3b
Original Note:
Today's Communication/Plan
-
Echo pending, otherwise stable for discharge to rehab.
Assessment / Plan
Assessment / Plan
Impression:
Patient is an 84y M with PMH significant for hypertension, hypothyroidism and CKD III who presents to ED complaining of RLE weakness / difficulty standing.
Admitted to the hospital service for acute CVA workup.
MRI brain shows:
1. ACUTE ISCHEMIC INFARCT in the ANTEROMEDIAL LEFT FRONTAL LOBE involving the medial cortical flanagan matter and white matter of the left barbour radiata (left anterior cerebral artery territory).
2. Moderate white matter leukoaraiosis in the frontal and parietal lobes.
3. Mild diffuse cerebral and cerebellar volume loss.
4. 4 mm chronic intraparenchymal hemorrhage in the periventricular white matter of the right parietal lobe.
5. Mild paranasal sinus mucosal disease.
6. Multilevel discogenic degenerative disease and facet joint arthrosis in the cervical spine causing mild spinal cord compression and central canal stenosis.
Renal Us shows:
1. Severe chronic left renal disease.
2. Mild to moderate chronic right renal disease.
3. No sonographic evidence for hydronephrosis or nephrolithiasis.
4. 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
5. Enlarged prostate transitional zone consistent with benign prostatic hyperplasia (BPH).
Physical therapy recommending rehab.
Echocardiogram ordered.
Social service consult for discharge plan
Assessment/plan:
ACUTE ISCHEMIC INFARCT ( ANTEROMEDIAL LEFT FRONTAL LOBE)
CT unremarkable.
CTA shows stenosis of R vertebral and L GERONIMO.
CT perfusion shows area of impaired perfusion in L GERONIMO distribution / L frontal lobe.
Aspirin/Plavix/atorvastatin.---> After 21 days to drop Plavix and continue aspirin 321 mg
- MRI brain shows:
1. ACUTE ISCHEMIC INFARCT in the ANTEROMEDIAL LEFT FRONTAL LOBE involving the medial cortical flanagan matter and white matter of the left barbour radiata (left anterior cerebral artery territory).
2. Moderate white matter leukoaraiosis in the frontal and parietal lobes.
3. Mild diffuse cerebral and cerebellar volume loss.
4. 4 mm chronic intraparenchymal hemorrhage in the periventricular white matter of the right parietal lobe.
5. Mild paranasal sinus mucosal disease.
6. Multilevel discogenic degenerative disease and facet joint arthrosis in the cervical spine causing mild spinal cord compression and central canal stenosis.
Renal Us shows:
- Total cholesterol level 188, LDL 126, globin A1c
- Neurology consulted, input
- PT / OT recommending acute
Speech recommending soft diet
Blood pressure was elevated initially and allowed for transfer hypertension for the first hour.
Added low-dose Norvasc started 12/26
Benign Hypertension
- Not currently on any antihypertensive medications despite listed diagnosis.
allowed permissive hypertension
And added low-dose moderate
CKD III
- Stable. Renal function is at / near known baseline.
Renal ultrasound done during hospitalization shows:
1. Severe chronic left renal disease.
2. Mild to moderate chronic right renal disease.
3. No sonographic evidence for hydronephrosis or nephrolithiasis.
4. 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
5. Enlarged prostate transitional zone consistent with benign prostatic hyperplasia (BPH).
BPH
- Stable. Continue finasteride.
- Bladder scan protocol.
Hypothyroidism
- Continue current T4 replacement.
- TSH 3.68
CODE STATUS: DNR
DVT prophylaxis: SCDs
Diet: Regular diet
Family communication: Discussed with at bedside
Disposition: Echo pending, otherwise stable for discharge to rehab.
Total time spent on today's encounter was 52 minutes which included time spent in counseling the patient/family regarding diagnosis and treatment plan as listed above, goals of care, and symptom management. Case was discussed with nursing staff,
specialists, and care coordinators/case management. All labs and imaging personally reviewed by me. Remainder the time spent in detailed review of previous records, lab data, imaging, and other medical provider documentation.
Anticipated Discharge: Today
Subjective/Interval History
-
Date of Service: December 26, 2024
Patient seen and examined at bedside, denies any chest pain or shortness of breath, no abdominal pain, no nausea, no vomiting, no diarrhea or constipation.
Objective Data
-
Labs:
Laboratory Results
12/26/24
05:47
WBC 6.6
Hgb 15.0
Hct 44.2
Plt Count 173
Sodium 142
Potassium 4.1
Chloride 113 H
Carbon Dioxide 23
BUN 14
Creatinine 1.2
Glucose 95
Calcium 8.6
Vital Signs:
Vital Signs
Temp Pulse Resp BP Pulse Ox
97.8 F 46 16 167/82 97
12/26/24 07:52 12/26/24 07:47 12/26/24 07:47 12/26/24 07:47 12/26/24 07:47
I&O
12/25/24 12/26/24 12/27/24
06:59 06:59 06:59
Intake Total 180 / 180 300 / 300
Output Total 400 / 400
Balance -220 / -220 300 / 300
Physical Exam
-
General: Well Developed, Well Nourished, No Apparent Distress and Comfortable
HEENT: Normocephalic, Atraumatic, Moist Mucous Membranes, No Ptosis, PERRLA and Nose Appears Normal
Respiratory: Clear to Auscultation and Non Labored Respirations
Cardiac: Regular Rhythm and S1/S2
Breast: Deferred by me
GI: Soft, Nontender, Nondistended and Normal Bowel Sounds
Genito-urinary: No Costovertebral Tender
Musculoskeletal: No Clubbing, No Cyanosis and No Edema
Skin: Warm
Neuro: Awake, Alert, Oriented, AO x 3 and No Motor Deficits
Psych: Calm
--- NOTE | 2024-12-26 10:51 | CM ---
Patient seen at bedside with Greta
PT/OT rec Acute rehab
tt hospitalist will order physiatry consult
spoke with Jaelyn Monet at [facility] [phone]
referral placed in [facility] to [facility] as requested by
PLAN: acute rehab, pending physiatry consult, bed availability
[2024-12-26 11:00] VITALS: BP 144/75
[2024-12-26] MEDS: NORVASC 5 MG PO (11:15)
[2024-12-26 15:15] VITALS: BP 136/69; PULSE 49; O2SAT 96
[2024-12-26 15:24] VITALS: BP 136/69; PULSE 49
[2024-12-26] MEDS: LIPITOR 40 MG PO (16:49)
[2024-12-26 19:15] VITALS: BP 133/93; BP 134/75; BP 151/88; PULSE 53; PULSE 70; PULSE 81
[2024-12-27 00:05] VITALS: BP 156/80
[2024-12-27 03:27] VITALS: BP 153/75
[2024-12-27 06:00] VITALS: BMI 35.0
[2024-12-27] MEDS: SYNTHROID 50 MCG PO (06:10)
[2024-12-27 06:50] LABS: Hematocrit 45.2 % (39.0-52.0); Hemoglobin 15.2 g/dL (13.0-18.0); Mean Corp Hgb Conc. 33.6 g/dL (33.0-37.0); Mean Corpuscular Volume 91.3 fL (80.0-94.0); Platelet Count 196 10^3/uL (130-400); Red Cell Dist. Width 13.8 % (11.5-14.5)
[2024-12-27 07:16] LABS: Blood Urea Nitrogen 17 mg/dl (9-20); Calcium 8.6 mg/dl (8.4-10.2); Carbon Dioxide 24 mmol/L (22-30); Chloride 111 mmol/L (98-107); Estimated Creatinine Clearance 46 ml/min; Glucose 92 mg/dl (70-99); Potassium 4.3 mmol/L (3.5-5.1); Sodium 141 mmol/L (135-145); eGFR 53.50
--- NOTE | 2024-12-27 07:49 | W.PN.HOSP.TC ---
Today's Communication/Plan
-
Discharge planning today
Assessment / Plan
Assessment / Plan
Physical exam:
General: Well Developed, Well Nourished and No Apparent Distress
HEENT: Normocephalic, Atraumatic and Moist Mucous Membranes
Respiratory: Clear to Auscultation; Negative Wheezes, Rales or Rhonchi
Cardiac: Regular Rhythm and S1/S2
GI: Soft, Nontender and Nondistended
Musculoskeletal: No Clubbing, No Cyanosis and No Edema
Neuro: Awake, Alert and Oriented, improving neurological status
Psych: Calm
Impression:
Patient is an 84y M with PMH significant for hypertension, hypothyroidism and CKD III who presents to ED complaining of RLE weakness / difficulty standing.
Admitted to the hospital service for acute CVA workup.
MRI brain shows:
1. ACUTE ISCHEMIC INFARCT in the ANTEROMEDIAL LEFT FRONTAL LOBE involving the medial cortical flanagan matter and white matter of the left barbour radiata (left anterior cerebral artery territory).
2. Moderate white matter leukoaraiosis in the frontal and parietal lobes.
3. Mild diffuse cerebral and cerebellar volume loss.
4. 4 mm chronic intraparenchymal hemorrhage in the periventricular white matter of the right parietal lobe.
5. Mild paranasal sinus mucosal disease.
6. Multilevel discogenic degenerative disease and facet joint arthrosis in the cervical spine causing mild spinal cord compression and central canal stenosis.
Renal Us shows:
1. Severe chronic left renal disease.
2. Mild to moderate chronic right renal disease.
3. No sonographic evidence for hydronephrosis or nephrolithiasis.
4. 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
5. Enlarged prostate transitional zone consistent with benign prostatic hyperplasia (BPH).
Physical therapy recommending rehab.
Echocardiogram ordered.
Social service consult for discharge plan
Assessment/plan:
ACUTE ISCHEMIC INFARCT ( ANTEROMEDIAL LEFT FRONTAL LOBE)
CT unremarkable.
CTA shows stenosis of R vertebral and L GERONIMO.
CT perfusion shows area of impaired perfusion in L GERONIMO distribution / L frontal lobe.
Aspirin/Plavix/atorvastatin.---> After 21 days to drop Plavix and continue aspirin 321 mg
- MRI brain shows:
1. ACUTE ISCHEMIC INFARCT in the ANTEROMEDIAL LEFT FRONTAL LOBE involving the medial cortical flanagan matter and white matter of the left barbour radiata (left anterior cerebral artery territory).
2. Moderate white matter leukoaraiosis in the frontal and parietal lobes.
3. Mild diffuse cerebral and cerebellar volume loss.
4. 4 mm chronic intraparenchymal hemorrhage in the periventricular white matter of the right parietal lobe.
5. Mild paranasal sinus mucosal disease.
6. Multilevel discogenic degenerative disease and facet joint arthrosis in the cervical spine causing mild spinal cord compression and central canal stenosis.
Renal Us shows:
- Total cholesterol level 188, LDL 126, globin A1c
- Neurology consulted, input
- PT / OT recommending acute
Speech recommending soft diet
Blood pressure was elevated initially and allowed for transfer hypertension for the first hour.
Added low-dose Norvasc started 12/26
12/27:
Continue DAPT for 3 weeks and then full dose aspirin afterwards; continue statins
Reviewed echocardiogram results
Plan to go to rehab today
Benign Hypertension
- Not currently on any antihypertensive medications despite listed diagnosis.
allowed permissive hypertension
And added low-dose moderate
12/27:
Continue low-dose amlodipine
CKD III
- Stable. Renal function is at / near known baseline.
Renal ultrasound done during hospitalization shows:
1. Severe chronic left renal disease.
2. Mild to moderate chronic right renal disease.
3. No sonographic evidence for hydronephrosis or nephrolithiasis.
4. 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
5. Enlarged prostate transitional zone consistent with benign prostatic hyperplasia (BPH).
BPH
- Stable. Continue finasteride.
- Bladder scan protocol.
Hypothyroidism
- Continue current T4 replacement.
- TSH 3.68
CODE STATUS: DNR
DVT prophylaxis: SCDs
Diet: Regular diet
Family communication: Discussed with at bedside prior
Disposition: discharge to rehab.
Anticipated Discharge: Today
Subjective/Interval History
-
Date of Service: December 27, 2024
Patient doing well. No new neurological deficits.
Objective Data
-
Labs:
Laboratory Results
12/27/24
06:21
WBC 6.8
Hgb 15.2
Hct 45.2
Plt Count 196
Sodium 141
Potassium 4.3
Chloride 111 H
Carbon Dioxide 24
BUN 17
Creatinine 1.3
Glucose 92
Calcium 8.6
Vital Signs:
Vital Signs
Temp Pulse Resp BP Pulse Ox
97.9 F 43 18 153/75 95
12/27/24 03:27 12/27/24 03:27 12/27/24 03:27 12/27/24 03:27 12/27/24 03:27
I&O
12/26/24 12/27/24 12/28/24
06:59 06:59 06:59
Intake Total 300 / 300 780 / 780
Balance 300 / 300 780 / 780
[2024-12-27 08:00] VITALS: BP 142/70
--- NOTE | 2024-12-27 08:08 | CM ---
Addendum entered by Tyesha Baeza 12/27/24 10:45:
IMM explained & signed. In chart
Jaelyn from [facility] has a bed today at 1pm
confirmed with Medicare primary
tt hospitalist
PLAN: [facility]
Report #: [id number]
Fax #: [phone]
Addendum entered by Tyesha Baeza 12/27/24 09:45:
Spoke with Jaelyn Monet from [facility] - accepted
Physiatry consult completed
Jaelyn Monet will check bed availability - tt hospitalist
PLAN: [facility]
Report #: [id number]
Fax #: [phone]
Original Note:
PT rec Acute Rehab
[facility]
await physiatry consult
PLAN: Acute Rehab, pending acceptance/bed availability, await physiatry consult
[2024-12-27] MEDS: PLAVIX 75 MG PO (08:24)
[2024-12-27] MEDS: PROSCAR 5 MG PO (08:24)
[2024-12-27] MEDS: LOW STRENGTH ASPIRIN 81 MG PO (08:24)
[2024-12-27] MEDS: NORVASC 5 MG PO (08:24)
--- NOTE | 2024-12-27 08:30 | CON.MD ---
Documented by User: Kerry Cannon PA-C 12/27/24 09:45
Consultation - Medical
-
Referring Provider:�Derek Courtney
Chief Complaint:�CVA
�
History of Present Illness:�Patient is a 84 year old male with PMH of (HTN, CKD, Hypothyroidism,neck pain) who presented to the ED on 12/25/2024 with acute onset right lower extremity weakness and change in mental status at the time of arrival.
Patient was ambulatory upon initial arrival here. He was evaluated by ED staff and noted to have some R weakness as well as confusion - which notes started only after his arrival here. Stroke alert was activated. Patient was beyond 4.5 hours
from initial symptom onset at this point and deemed not a candidate for TNK.Subsequent MRI imaging of the brain demonstrated a chronic right parietal ischemic/hemorrhagic stroke with an acute ischemic stroke in the right frontal lobe.
Patient seen at bedside. Stated he slept okay last night. Appetite seems to be fair. He thinks his last bowel movement was 2 days ago. Does not voice any chest pain, shortness of breath, dizziness, lightheadedness, nausea, vomiting, fever,
chills, dysuria, abdominal pain. He has some aphasia and cognitive impairment. Does not remember the reason why he is in the hospital and is unaware of his diagnosis.
Past Medical History:� CVA- December 2024, HTN, Kidney stones, Hypothyroidism, neck pain, CKD
Procedure History:�Skin Cancer Excision
Family History:�negative for CAD, Dad- stroke
�
Social History:�
Functional Level Premorbidly:�Independent with all activities�
Functional Level Currently:�grooming - set-up, lower body dressing-mod assist, transfers- min-mod assist, ambulates 25 feet with rw-
�
Tobacco:�Denies�
Alcohol:�Denies�
Drug use:�Denies�
�
Lives with:�spouse
24-hour assistance available:�
Number of floors:�2 story
# steps to enter:�2 steps
# steps to second floor:FF
Potential First floor set up:�yes
Driving:�yes
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
�
�
Allergies:�
Allergy/AdvReac Type Severity Reaction Status Date / Time
No Known Allergies Allergy Verified 12/25/24 00:31
�
Review of Systems:�
Constitutional: (x) Normal _
Eye: (x) Normal _
Ear/Nose/Throat: (x) Normal _
Respiratory: (x) Normal _
Cardiovascular: (x) Normal _
Gastrointestinal: (x) Normal _
Genitourinary: (x) Normal _
Musculoskeletal: (x) abNormal _mild weakness on right
Integumentary: (x) Normal _
Neurologic: (x) abNormal _aphasia-mild, cognitive impairment
Psychiatric: (x) Normal _
Endocrine: (x) Normal _
Hematologic/Lymphatic: (x) Normal _
Allergic/Immunologic: (x) Normal _
�
Medications:�
Active Current Visit Medication List
Category Date Time Status
Acetaminophen [Tylenol] Med 12/25/24 05:59 Active
650 mg PO Q4HPRN PRN
Amlodipine [Norvasc] Med 12/26/24 11:00 Active
5 mg PO DAILY
Aspirin Chewable [Low Strength Aspirin] Med 12/25/24 08:00 Active
81 mg PO DAILY
Atorvastatin [Lipitor] Med 12/26/24 18:00 Active
40 mg PO QPM
Clopidogrel Bisulfate [Plavix] Med 12/25/24 08:00 Active
75 mg PO DAILY
Finasteride [Proscar] Med 12/25/24 08:00 Active
5 mg PO DAILY
Flush (0.9% Sodium Chloride) [Flush (Nss)] Med 12/25/24 07:00 Active
See Dose Instructions IV PER PROTOCOL
Levothyroxine [Synthroid] Med 12/26/24 06:00 Active
50 mcg PO DAILY @ 0600
�
Vitals:�
Temp Pulse Resp BP Pulse Ox
97.9 F 43 18 153/75 95
12/27/24 03:27 12/27/24 03:27 12/27/24 03:27 12/27/24 03:27 12/27/24 03:27
Height 5 ft 7 in
Actual Weight 101.605 kg
Body Mass Index (BMI) 35.1
�
Physical Exam:�
General Appearance/Observation: Well-developed, well-nourished individual in no apparent distress.�
Pain/Comfort Assessment: Denies�
Mood/Affect: Appropriate�
�
Integumentary/Operative Site:�
�� Pressure Ulcer Evaluation: absent over heels.�
��
�� Other Type of Wound: absent�
��
�
Eyes: Conjunctiva/Lids: normal���� Pupils: pupils equal round and reactive to light and Accommodation�
Ears/Nose/Throat: oral mucosa moist,� throat clear.������������ Lips/Teeth/Gums: normal�
Neck: No muscle spasm or tenderness�
Cardiovascular: Heart: regular, no murmur�
Pulses: dorsalis pedis 2+ bilaterally�
Respiratory: Respiratory Effort/Chest Expansion: normal������� Auscultation: Clear to auscultation bilaterally�
Gastrointestinal: abdomen not tender, no distension, normal abdominal bowel sounds
Genitourinary: No Chappell�
Extremities:�Edema: None�Cyanosis: None�Trophic�changes: None
�
Neurology Exam:
Orientation: Alert, Oriented to self, Place. Not to time. Did not know the date, year or month. When asked what season are we in says
Memory: Impaired
Comprehension: Slow to process, needing cues and repeating
Two step command: Slow to process, needing cues and repeating
Naming: Intact
Calculation�could not perform. Able to tell time on the clock after self-correcting the second time
Cranial Nerves:
�� CNII:�Pupillary light reflex: Intact����Visual Field: Intact
�� CN III, IV, : Extraocular muscles: Intact�
�� CN V:�Facial Sensation�at�Forehead: Intact,�Maxilla: Intact,�Mandible: Intact
�� CN VII:�Facial movement: Symmetric
�� CN VIII:�Hearing: Normal
�� CN IX/X:�Speech & swallow: Normal,�Position of Uvula: Midline
�� CN XI:�Shoulder shrug: Symmetric
�� CN XII:�Tongue protrusion: Midline
Sensory:
�� Light touch: Intact in bilateral upper and lower extremities
��
�
Reflexes:
�� Biceps: 2+ bilaterally
�� Brachioradialis: 2+ bilaterally
�� Triceps: 2+ bilaterally
�� Patellar: 2+ bilaterally
�� Achilles: Absent bilaterally
�� Babinski: Down going bilaterally
�� Clonus: None
�� Antelmo: Negative bilaterally�
Cerebellar: Dysmetria/Ataxia: None. Needed hqut-vi-alco instructions for completion of ptryhh-hn-syta coordination
Musculoskeletal:
Motor: (Manual muscle scale 0-5)�
Muscle SA EF WE EE FF FA HF KE DF EHL PF
Right� 5 5 5 5 5 5- 5- 5- 5 5 5
Left 5 5 5 5 5 5 5 5 5 5 5
�
Tone: Normal in all extremities�
Range of Motion: Passively within normal limits in all extremities�
�
Lab Results
Labs
WBC 6.8 10^3/uL (4.8-10.8) 12/27/24 06:21
RBC 4.95 10^6/uL (4.70-6.10) 12/27/24 06:21
Hgb 15.2 g/dL (13.0-18.0) 12/27/24 06:21
Hct 45.2 % (39.0-52.0) 12/27/24 06:21
MCV 91.3 fL (80.0-94.0) 12/27/24 06:21
MCH 30.7 pg (27.0-31.0) 12/27/24 06:21
MCHC 33.6 g/dL (33.0-37.0) 12/27/24 06:21
RDW 13.8 % (11.5-14.5) 12/27/24 06:21
Plt Count 196 10^3/uL (130-400) 12/27/24 06:21
MPV 10.8 fL (7.4-10.4) H 12/27/24 06:21
Abs Immat Gran (auto) 0.0 10^3/uL (0-0.05) 12/24/24 21:23
Absolute Neuts (auto) 4.1 10^3/uL (1.4-6.5) 12/24/24 21:
Absolute Lymphs (auto) 3.1 10^3/uL (1.2-3.4) 12/24/24 21:23
Absolute Monos (auto) 0.7 10^3/uL (0.1-0.6) H 12/24/24:23
Absolute Eos (auto) 0.1 10^3/uL (0-0.7) 12/24/24:
Absolute Basos (auto) 0.0 10^3/uL (0-0.2) 12/24/24:
Immature Gran % 0.4 % (0-0.5) 12/24/24 21:23
Neutrophils % 51.9 % (42.2-75.2) 12/24/24 21:
Lymphocytes % 38.2 % (20.5-51.1) 12/24/24:
Monocytes % 8.1 % (1.7-9.3) 12/24/24:
Eosinophils % 1.1 % (0-6) 12/24/24:
Basophils % 0.3 % (0-2) 12/24/24:
Nucleated RBC % 0 % (-) 12/24/24:23
PT 13.3 Sec (11.4-14.6) 12/25/24 01:08
INR 0.98 12/25/24 01:08
APTT 31.2 Sec (23.4-35.0) 12/25/24 01:08
Sodium 141 mmol/L (135-145) 12/27/24 06:21
Potassium 4.3 mmol/L (3.5-5.1) 12/27/24 06:21
Chloride 111 mmol/L (98-107) H 12/27/24 06:21
Carbon Dioxide 24 mmol/L (22-30) 12/27/24 06:21
BUN 17 mg/dl (9-20) 12/27/24 06:21
Creatinine 1.3 mg/dL (0.7-1.3) 12/27/24 06:21
Estimated Creat Clear 46 ml/min 12/27/24 06:21
eGFR 53.50 12/27/24 06:21
Glucose 92 mg/dl (70-99) 12/27/24 06:21
Hemoglobin A1c 5.9 % (4.0-5.6) H 12/25/24 07:08
Calcium 8.6 mg/dl (8.4-10.2) 12/27/24 06:21
Magnesium 2.1 mg/dl (1.6-2.3) 12/26/24 05:47
Total Bilirubin 0.7 mg/dl (0.2-1.3) 12/24/24 21:23
AST 25 U/L (17-59) 12/24/24 21:23
ALT 24 U/L (0-50) 12/24/24 21:23
Alkaline Phosphatase 70 U/L (38-126) 12/24/24 21:23
Troponin I < 0.012 ng/ml 12/25/24 01:08
Total Protein 7.1 g/dl (6.3-8.2) 12/24/24 21:23
Albumin 4.2 g/dl (3.5-5.0) 12/24/24 21:23
Triglycerides 112 mg/dl (10-149) 12/25/24 07:08
Total Cholesterol 188 mg/dl (50-199) 12/25/24 07:08
LDL Cholesterol, Calc 126 mg/dl 12/25/24 07:08
VLDL Cholesterol, Calc 22 mg/dl (0-30) 12/25/24 07:08
HDL Cholesterol 40 mg/dl 12/25/24 07:08
TSH (Reflex) 3.68 uIU/ml (0.47-4.68) 12/25/24 07:08
Urine Color Yellow 12/25/24 02:08
Urine Clarity Clear (Clear) 12/25/24 02:08
Urine pH 5.0 (5.0-9.0) 12/25/24 02:08
Ur Specific [place] 1.025 (<1.030) 12/25/24 02:08
Urine Ketones Negative (Negative) 12/25/24 02:08
Ur Occult Blood Reflex Negative (Negative) 12/25/24 02:08
Urine Nitrite (Reflex) Negative (Negative) 12/25/24 02:08
Urine Bilirubin Negative (Negative) 12/25/24 02:08
Urine Urobilinogen Negative (Neg - 1+) 12/25/24 02:08
Leukocyte Esterase Rfl Negative (Negative) 12/25/24 02:08
Urine RBC None seen /HPF (0-2) 12/25/24 02:08
Urine WBC (Reflex) 0-2 /HPF (0-5) 12/25/24 02:08
Ur Squamous Epith Cells 3-5 /LPF (Few) 12/25/24 02:08
Urine Glucose Negative (Negative) 12/25/24 02:08
Urine Albumin (Reflex) 1+ (Neg - Trace) A 12/25/24 02:08
�
Diagnostic Results:�as per HPI�
MRI brain shows:
1. ACUTE ISCHEMIC INFARCT in the ANTEROMEDIAL LEFT FRONTAL LOBE involving the medial cortical flanagan matter and white matter of the left barbour radiata (left anterior cerebral artery territory).
2. Moderate white matter leukoaraiosis in the frontal and parietal lobes.
3. Mild diffuse cerebral and cerebellar volume loss.
4. 4 mm chronic intraparenchymal hemorrhage in the periventricular white matter of the right parietal lobe.
5. Mild paranasal sinus mucosal disease.
6. Multilevel discogenic degenerative disease and facet joint arthrosis in the cervical spine causing mild spinal cord compression and central canal stenosis.
Renal Us shows:
1. Severe chronic left renal disease.
2. Mild to moderate chronic right renal disease.
3. No sonographic evidence for hydronephrosis or nephrolithiasis.
4. 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
5. Enlarged prostate transitional zone consistent with benign prostatic hyperplasia (BPH).
�
Assessment: 84 year old male with PMH of (HTN, CKD, Hypothyroidism,neck pain) presented with acute right lower extremity weakness and change in mental status found to have acute infarct in the anteromedial left frontal lobe. 4 mm chronic
intraparenchymal hemorrhage in the periventricular white matter of the right parietal lobe.Was not a candidate for TNK because of out of window.
�
Plan�
PM&R�PT/OT to increase independence with ADLs, improve balance, coordination, endurance, strength, mobility, community reintegration, decreased burden of care on others and family education.�
�
CVA: Secondary prophylaxis with aspirin and plavix x 21 days. After 21 days, replace both with aspirin 325 mg daily due to intracranial stenosis, despite the small area of intraparenchymal hemorrhage included in the chronic right parietal lobe
stroke., statin, and blood pressure control (SBP less than 180 and diastolic less than 100 to participate with therapy for ischemic stroke). Continue to monitor neurologic status.�
right dominant hemiparesis: High risk for falls and sliding out of chair/bed. Safety reinforced.�Impoved
- Avoid using affected arm to help lift or pull patient as this will cause trauma to the shoulder.
Aphasia: Mild receptive and expressive.speech evaluation�
HTN: Amlodipine 5 mg daily monitor closely�
HLD: Atorvastatin 40 mg every afternoon
Hypothyroidism: levothyroxine�50 mcg daily
Anemia: Likely multifactorial.� Continue to monitor.�
Psych: Psychology consult.� Monitor mood, adjust medications as needed.�
Skin: monitor for pressure sores/rashes/lesions.�
Pain: acetaminophen as needed.�
Bowel: Colace and Senna, PRN bisacodyl.�
Bladder/BPH: Time void, PVRs, PRN straight cath.� Proscar 5 mg daily
GI Prophylaxis: recommend Pantoprazole�since on plavix and asa
DVT Prophylaxis: mechanical
Pulmonary: Incentive spirometry�
Obesity: Continue to career placement services counselor patient about diet adjustments to control obesity. Body habitus and increased force to move body and extremities causes further difficulty with functional tasks.�
Safety: Continue to reinforce assistance with all transfers.�
Code Status:� DNR�
Dispo�(date/plan/equipment needs): Home with family care.� Social history reviewed.�
�
Functional and Medical Goals:�Modified Independent with ADL�s, ambulation, transfers�
�
�
Discharge Destination:�Acute inpatient rehab
�
Thank you for allowing me to care for your patient. Please contact me with any questions or concerns.
Consultation
-
Date/Time Consultation Requested: 12/26/2024
Date/Time Consultation Performed: 12/27/2024
Requesting Provider: Derek Courtney
Performing Provider: Kerry Cannon/Dr. Guillaume
Reason for Consultation: Stroke

Documented by User: Javi Guillaume MD 12/27/24 22:47
Consultation - Medical
-
Referring Provider:�Derek Courtney
Chief Complaint:�CVA
�
History of Present Illness:�Patient is a 84 year old male with PMH of (HTN, CKD, Hypothyroidism,neck pain) who presented to the ED on 12/25/2024 with acute onset right lower extremity weakness and change in mental status at the time of arrival.
Patient was ambulatory upon initial arrival here. He was evaluated by ED staff and noted to have some R weakness as well as confusion - which notes started only after his arrival here. Stroke alert was activated. Patient was beyond 4.5 hours
from initial symptom onset at this point and deemed not a candidate for TNK.Subsequent MRI imaging of the brain demonstrated a chronic right parietal ischemic/hemorrhagic stroke with an acute ischemic stroke in the right frontal lobe.
Patient seen at bedside. Stated he slept okay last night. Appetite seems to be fair. He thinks his last bowel movement was 2 days ago. Does not voice any chest pain, shortness of breath, dizziness, lightheadedness, nausea, vomiting, fever,
chills, dysuria, abdominal pain. He has some aphasia and cognitive impairment. Does not remember the reason why he is in the hospital and is unaware of his diagnosis.
Past Medical History:� CVA- December 2024, HTN, Kidney stones, Hypothyroidism, neck pain, CKD
Procedure History:�Skin Cancer Excision
Family History:�negative for CAD, Dad- stroke
�
Social History:�
Functional Level Premorbidly:�Independent with all activities�
Functional Level Currently:�grooming - set-up, lower body dressing-mod assist, transfers- min-mod assist, ambulates 25 feet with rw-
�
Tobacco:�Denies�
Alcohol:�Denies�
Drug use:�Denies�
�
Lives with:�spouse
24-hour assistance available:�
Number of floors:�2 story
# steps to enter:�2 steps
# steps to second floor:FF
Potential First floor set up:�yes
Driving:�yes
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
�
�
Allergies:�
Allergy/AdvReac Type Severity Reaction Status Date / Time
No Known Allergies Allergy Verified 12/25/24 00:31
�
Review of Systems:�
Constitutional: (x) Normal _
Eye: (x) Normal _
Ear/Nose/Throat: (x) Normal _
Respiratory: (x) Normal _
Cardiovascular: (x) Normal _
Gastrointestinal: (x) Normal _
Genitourinary: (x) Normal _
Musculoskeletal: (x) abNormal _mild weakness on right
Integumentary: (x) Normal _
Neurologic: (x) abNormal _aphasia-mild, cognitive impairment
Psychiatric: (x) Normal _
Endocrine: (x) Normal _
Hematologic/Lymphatic: (x) Normal _
Allergic/Immunologic: (x) Normal _
�
Medications:�
Active Current Visit Medication List
Category Date Time Status
Acetaminophen [Tylenol] Med 12/25/24 05:59 Active
650 mg PO Q4HPRN PRN
Amlodipine [Norvasc] Med 12/26/24 11:00 Active
5 mg PO DAILY
Aspirin Chewable [Low Strength Aspirin] Med 12/25/24 08:00 Active
81 mg PO DAILY
Atorvastatin [Lipitor] Med 12/26/24 18:00 Active
40 mg PO QPM
Clopidogrel Bisulfate [Plavix] Med 12/25/24 08:00 Active
75 mg PO DAILY
Finasteride [Proscar] Med 12/25/24 08:00 Active
5 mg PO DAILY
Flush (0.9% Sodium Chloride) [Flush (Nss)] Med 12/25/24 07:00 Active
See Dose Instructions IV PER PROTOCOL
Levothyroxine [Synthroid] Med 12/26/24 06:00 Active
50 mcg PO DAILY @ 0600
�
Vitals:�
Temp Pulse Resp BP Pulse Ox
97.9 F 43 18 153/75 95
12/27/24 03:27 12/27/24 03:27 12/27/24 03:27 12/27/24 03:27 12/27/24 03:27
Height 5 ft 7 in
Actual Weight 101.605 kg
Body Mass Index (BMI) 35.1
�
Physical Exam:�
General Appearance/Observation: Well-developed, well-nourished individual in no apparent distress.�
Pain/Comfort Assessment: Denies�
Mood/Affect: Appropriate�
�
Integumentary/Operative Site:�
�� Pressure Ulcer Evaluation: absent over heels.�
��
�� Other Type of Wound: absent�
��
�
Eyes: Conjunctiva/Lids: normal���� Pupils: pupils equal round and reactive to light and Accommodation�
Ears/Nose/Throat: oral mucosa moist,� throat clear.������������ Lips/Teeth/Gums: normal�
Neck: No muscle spasm or tenderness�
Cardiovascular: Heart: regular, no murmur�
Pulses: dorsalis pedis 2+ bilaterally�
Respiratory: Respiratory Effort/Chest Expansion: normal������� Auscultation: Clear to auscultation bilaterally�
Gastrointestinal: abdomen not tender, no distension, normal abdominal bowel sounds
Genitourinary: No Chappell�
Extremities:�Edema: None�Cyanosis: None�Trophic�changes: None
�
Neurology Exam:
Orientation: Alert, Oriented to self, Place. Not to time. Did not know the date, year or month. When asked what season are we in says
Memory: Impaired
Comprehension: Slow to process, needing cues and repeating
Two step command: Slow to process, needing cues and repeating
Naming: Intact
Calculation�could not perform. Able to tell time on the clock after self-correcting the second time
Cranial Nerves:
�� CNII:�Pupillary light reflex: Intact����Visual Field: Intact
�� CN III, IV, : Extraocular muscles: Intact�
�� CN V:�Facial Sensation�at�Forehead: Intact,�Maxilla: Intact,�Mandible: Intact
�� CN VII:�Facial movement: Symmetric
�� CN VIII:�Hearing: Normal
�� CN IX/X:�Speech & swallow: Normal,�Position of Uvula: Midline
�� CN XI:�Shoulder shrug: Symmetric
�� CN XII:�Tongue protrusion: Midline
Sensory:
�� Light touch: Intact in bilateral upper and lower extremities
��
�
Reflexes:
�� Biceps: 2+ bilaterally
�� Brachioradialis: 2+ bilaterally
�� Triceps: 2+ bilaterally
�� Patellar: 2+ bilaterally
�� Achilles: Absent bilaterally
�� Babinski: Down going bilaterally
�� Clonus: None
�� Antelmo: Negative bilaterally�
Cerebellar: Dysmetria/Ataxia: None. Needed vjah-ji-frov instructions for completion of vrlvil-lw-qdvq coordination
Musculoskeletal:
Motor: (Manual muscle scale 0-5)�
Muscle SA EF WE EE FF FA HF KE DF EHL PF
Right� 5 5 5 5 5 5- 5- 5- 5 5 5
Left 5 5 5 5 5 5 5 5 5 5 5
�
Tone: Normal in all extremities�
Range of Motion: Passively within normal limits in all extremities�
�
Lab Results
Labs
WBC 6.8 10^3/uL (4.8-10.8) 12/27/24 06:21
RBC 4.95 10^6/uL (4.70-6.10) 12/27/24 06:21
Hgb 15.2 g/dL (13.0-18.0) 12/27/24 06:21
Hct 45.2 % (39.0-52.0) 12/27/24 06:21
MCV 91.3 fL (80.0-94.0) 12/27/24 06:21
MCH 30.7 pg (27.0-31.0) 12/27/24 06:21
MCHC 33.6 g/dL (33.0-37.0) 12/27/24 06:21
RDW 13.8 % (11.5-14.5) 12/27/24 06:21
Plt Count 196 10^3/uL (130-400) 12/27/24 06:21
MPV 10.8 fL (7.4-10.4) H 12/27/24 06:21
Abs Immat Gran (auto) 0.0 10^3/uL (0-0.05) 12/24/24 21:
Absolute Neuts (auto) 4.1 10^3/uL (1.4-6.5) 12/24/24 21:
Absolute Lymphs (auto) 3.1 10^3/uL (1.2-3.4) 12/24/24 21:23
Absolute Monos (auto) 0.7 10^3/uL (0.1-0.6) H 12/24/24 21:
Absolute Eos (auto) 0.1 10^3/uL (0-0.7) 12/24/24 21:
Absolute Basos (auto) 0.0 10^3/uL (0-0.2) 12/24/24:
Immature Gran % 0.4 % (0-0.5) 12/24/24 21:
Neutrophils % 51.9 % (42.2-75.2) 12/24/24:
Lymphocytes % 38.2 % (20.5-51.1) 12/24/24 21:
Monocytes % 8.1 % (1.7-9.3) 12/24/24:
Eosinophils % 1.1 % (0-6) 12/24/24:
Basophils % 0.3 % (0-2) 12/24/24:
Nucleated RBC % 0 % (-) 12/24/24 21:23
PT 13.3 Sec (11.4-14.6) 12/25/24 01:08
INR 0.98 12/25/24 01:08
APTT 31.2 Sec (23.4-35.0) 12/25/24 01:08
Sodium 141 mmol/L (135-145) 12/27/24 06:21
Potassium 4.3 mmol/L (3.5-5.1) 12/27/24 06:21
Chloride 111 mmol/L (98-107) H 12/27/24 06:21
Carbon Dioxide 24 mmol/L (22-30) 12/27/24 06:21
BUN 17 mg/dl (9-20) 12/27/24 06:21
Creatinine 1.3 mg/dL (0.7-1.3) 12/27/24 06:21
Estimated Creat Clear 46 ml/min 12/27/24 06:21
eGFR 53.50 12/27/24 06:21
Glucose 92 mg/dl (70-99) 12/27/24 06:21
Hemoglobin A1c 5.9 % (4.0-5.6) H 12/25/24 07:08
Calcium 8.6 mg/dl (8.4-10.2) 12/27/24 06:21
Magnesium 2.1 mg/dl (1.6-2.3) 12/26/24 05:47
Total Bilirubin 0.7 mg/dl (0.2-1.3) 12/24/24 21:23
AST 25 U/L (17-59) 12/24/24 21:23
ALT 24 U/L (0-50) 12/24/24 21:23
Alkaline Phosphatase 70 U/L (38-126) 12/24/24 21:23
Troponin I < 0.012 ng/ml 12/25/24 01:08
Total Protein 7.1 g/dl (6.3-8.2) 12/24/24 21:23
Albumin 4.2 g/dl (3.5-5.0) 12/24/24 21:23
Triglycerides 112 mg/dl (10-149) 12/25/24 07:08
Total Cholesterol 188 mg/dl (50-199) 12/25/24 07:08
LDL Cholesterol, Calc 126 mg/dl 12/25/24 07:08
VLDL Cholesterol, Calc 22 mg/dl (0-30) 12/25/24 07:08
HDL Cholesterol 40 mg/dl 12/25/24 07:08
TSH (Reflex) 3.68 uIU/ml (0.47-4.68) 12/25/24 07:08
Urine Color Yellow 12/25/24 02:08
Urine Clarity Clear (Clear) 12/25/24 02:08
Urine pH 5.0 (5.0-9.0) 12/25/24 02:08
Ur Specific [place] 1.025 (<1.030) 12/25/24 02:08
Urine Ketones Negative (Negative) 12/25/24 02:08
Ur Occult Blood Reflex Negative (Negative) 12/25/24 02:08
Urine Nitrite (Reflex) Negative (Negative) 12/25/24 02:08
Urine Bilirubin Negative (Negative) 12/25/24 02:08
Urine Urobilinogen Negative (Neg - 1+) 12/25/24 02:08
Leukocyte Esterase Rfl Negative (Negative) 12/25/24 02:08
Urine RBC None seen /HPF (0-2) 12/25/24 02:08
Urine WBC (Reflex) 0-2 /HPF (0-5) 12/25/24 02:08
Ur Squamous Epith Cells 3-5 /LPF (Few) 12/25/24 02:08
Urine Glucose Negative (Negative) 12/25/24 02:08
Urine Albumin (Reflex) 1+ (Neg - Trace) A 12/25/24 02:08
�
Diagnostic Results:�as per HPI�
MRI brain shows:
1. ACUTE ISCHEMIC INFARCT in the ANTEROMEDIAL LEFT FRONTAL LOBE involving the medial cortical flanagan matter and white matter of the left barbour radiata (left anterior cerebral artery territory).
2. Moderate white matter leukoaraiosis in the frontal and parietal lobes.
3. Mild diffuse cerebral and cerebellar volume loss.
4. 4 mm chronic intraparenchymal hemorrhage in the periventricular white matter of the right parietal lobe.
5. Mild paranasal sinus mucosal disease.
6. Multilevel discogenic degenerative disease and facet joint arthrosis in the cervical spine causing mild spinal cord compression and central canal stenosis.
Renal Us shows:
1. Severe chronic left renal disease.
2. Mild to moderate chronic right renal disease.
3. No sonographic evidence for hydronephrosis or nephrolithiasis.
4. 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
5. Enlarged prostate transitional zone consistent with benign prostatic hyperplasia (BPH).
�
Assessment: 84 year old male with PMH of (HTN, CKD, Hypothyroidism,neck pain) presented with acute right lower extremity weakness and change in mental status found to have acute infarct in the anteromedial left frontal lobe. 4 mm chronic
intraparenchymal hemorrhage in the periventricular white matter of the right parietal lobe.Was not a candidate for TNK because of out of window.
�
Plan�
PM&R�PT/OT to increase independence with ADLs, improve balance, coordination, endurance, strength, mobility, community reintegration, decreased burden of care on others and family education.�
�
CVA: Secondary prophylaxis with aspirin and plavix x 21 days. After 21 days, replace both with aspirin 325 mg daily due to intracranial stenosis, despite the small area of intraparenchymal hemorrhage included in the chronic right parietal lobe
stroke., statin, and blood pressure control (SBP less than 180 and diastolic less than 100 to participate with therapy for ischemic stroke). Continue to monitor neurologic status.�
right dominant hemiparesis: High risk for falls and sliding out of chair/bed. Safety reinforced.�Impoved
- Avoid using affected arm to help lift or pull patient as this will cause trauma to the shoulder.
Aphasia: Mild receptive and expressive.speech evaluation�
HTN: Amlodipine 5 mg daily monitor closely�
HLD: Atorvastatin 40 mg every afternoon
Hypothyroidism: levothyroxine�50 mcg daily
Anemia: Likely multifactorial.� Continue to monitor.�
Psych: Psychology consult.� Monitor mood, adjust medications as needed.�
Skin: monitor for pressure sores/rashes/lesions.�
Pain: acetaminophen as needed.�
Bowel: Colace and Senna, PRN bisacodyl.�
Bladder/BPH: Time void, PVRs, PRN straight cath.� Proscar 5 mg daily
GI Prophylaxis: recommend Pantoprazole�since on plavix and asa
DVT Prophylaxis: mechanical
Pulmonary: Incentive spirometry�
Obesity: Continue to career placement services counselor patient about diet adjustments to control obesity. Body habitus and increased force to move body and extremities causes further difficulty with functional tasks.�
Safety: Continue to reinforce assistance with all transfers.�
Code Status:� DNR�
Dispo�(date/plan/equipment needs): Home with family care.� Social history reviewed.�
�
Functional and Medical Goals:�Modified Independent with ADL�s, ambulation, transfers�
Discharge Destination:�Acute inpatient rehab
Attending Statement: Patient not seen before he was admitted. Saw patient as an admission.
�
Thank you for allowing me to care for your patient. Please contact me with any questions or concerns.
[2024-12-27 10:45] VITALS: BP 109/80; PULSE 70
--- NOTE | 2024-12-27 10:49 | W.DCSUMMARY ---
Discharge Summary
Discharge Data
Date of Admission: 12/25/24
Date of Discharge: 12/27/24
Total time spent discharging patient (in min): 35
-
Pending Results: No
Hospital Course
Patient 84-year-old male with history of hypertension, hypothyroidism, CKD, came into the hospital with difficulty getting out of his chair at home and noticed right sided weakness and confusion. CT did not show any acute abnormality but CTA of the
head and neck showed severe focal narrowing of the mid left anterior cerebral artery and CT brain perfusion showed that there was hypoperfusion of the left anterior cerebral artery territory. He was not a candidate for TNK due to out of time
window. 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 MRI also reported multilevel
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 He was adding a calcium channel helen for blood pressure control after
permissive hypertension. Transthoracic echocardiogram did not show any intracardiac thrombus and normal EF as well as moderate tricuspid regurgitation. Neurology recommended dual antiplatelet therapy with aspirin and Plavix for 3 weeks and
afterwards continue full dose aspirin with 325 mg daily of aspirin lifelong due to intracranial stenosis. Of note he has chronic small area of intraparenchymal hemorrhage but that has been stable and he is tolerating well antiplatelets therapy.
Patient otherwise has been doing well clinically and acute rehab evaluated the patient and accept him for further rehab. Patient will be discharged to acute rehab in relatively stable condition.
Discharge duration: 35 minutes
Discharge Plan
-
Patient Disposition: Acute Rehab Facility
Discharge Diagnosis/Procedures: Acute Stroke
Diet: Low Cholesterol
Activity: As tolerated
Blood Work: Please PCP to order CBC, BMP within 1 week
Referrals:
Miki Wilson MD [Family Provider, Internal Medicine]
Additional Discharge Medication Instructions: Aspirin 81 mg and Plavix 75 mg once daily for 3 weeks then Aspirin 325 mg po once daily lifelong.
Prescriptions:
New
atorvastatin 40 mg Tablet
40 mg PO QPM 30 Days Qty: 30 0RF
clopidogrel 75 mg Tablet
75 mg PO DAILY 21 Days Qty: 21 0RF
amlodipine 5 mg Tablet
5 mg PO DAILY 30 Days Qty: 30 0RF
aspirin 81 mg capsule
81 mg PO DAILY Qty: 20 0RF
Rx Instructions:
Until 01/16/2025
aspirin 325 mg capsule
325 mg PO DAILY Qty: 30 0RF
Rx Instructions:
Start taking on 01/17/2025.
Continued
levothyroxine 50 MCG tablet
50 mcg PO DAILY
Rx Instructions:
at 6 am
finasteride 5 MG tablet
5 mg PO DAILY
Discharge Orders:
Discharge Patient (As Directed); Ordered 12/27/24
Ordered By: Iain Smyth
Discharge Date and Time
Discharge Date/Time: 12/27/24 15:43
Print Language: DUTCH
[2024-12-27 10:59] VITALS: BP 154/78
--- NOTE | 2024-12-27 15:15 | PTCARENOTE ---
Report given to Nelli at [facility]. Patient going to room 315. Patient and spouse updated.
[2024-12-27 15:25] VITALS: BP 135/89
== END 2024-12-27 15:43 | DRG 64 ==
LOC: 3 WEST ACU 03:51
PROVIDERS: Emergency Medicine; General Practice; ADMITTING PHYSICIAN Hospitalist; ATTENDING PHYSICIAN Hospitalist; CONSULT PHYSICIAN Physical Medicine & Rehabilitation; CONSULT PHYSICIAN Psychiatry & Neurology Neurology; EMERGENCY PHYSICIAN Student in an Organized Health Care Education/Training Program; FAMILY PHYSICIAN Internal Medicine
DX: I63.9 Cerebral infarction, unspecified (principal); I61.9 Nontraumatic intracerebral hemorrhage, unspecified; N17.9 Acute kidney failure, unspecified; G81.91 Hemiplegia, unspecified affecting right dominant side; G95.20 Unspecified cord compression; I12.9 Hypertensive chronic kidney disease with stage 1 through stage 4 chronic kidney disease, or unspecified chronic kidney disease; E03.9 Hypothyroidism, unspecified; Z66 Do not resuscitate; Z79.02 Long term (current) use of antithrombotics/antiplatelets; Z79.82 Long term (current) use of aspirin; Z79.899 Other long term (current) drug therapy; N18.32 Chronic kidney disease, stage 3b; R29.704 NIHSS score 4; R47.01 Aphasia; Z85.828 Personal history of other malignant neoplasm of skin; Z86.73 Personal history of transient ischemic attack (TIA), and cerebral infarction without residual deficits
CPT/HCPCS: 0042T; 51701; 70450; 70496; 70498; 70551; 76770; 80048; 80053; 80061; 81003; 81015; 83036; 83735; 84443; 84484; 85025; 85027; 85610; 85730; 87070; 92507; 92523; 92610; 93005; 93306; 97116; 97163; 97167; 97535; 99285; Q9967